=== PATIENT | female | born 1985 | race African-American/Black ===

== ENCOUNTER 2017-03-04 19:33 | Emergency (ER) | payer OTHER ==
[~2017-03-04] VITALS: Ht 165.1 cm; Wt 83.9 kg
--- NOTE | 2017-03-04 20:11 | NUR ---
Urine obtained & sent to lab.
--- NOTE | 2017-03-04 20:48 | NUR ---
union laborer at bedside for blood draw.
[2017-03-04 20:55] LABS: BASOPHILS % (AUTO) 0.6 % (0.0-2.0); EOSINOPHILS # (AUTO) 0.1 /CMM (0.0-0.7); EOSINOPHILS % (AUTO) 1.6 % (0.0-6.0); HEMATOCRIT 41 % (33-45); HEMOGLOBIN 13.6 g/dL (11.5-14.8); LYMPHOCYTES # (AUTO) 1.9 /CMM (0.8-4.8); LYMPHOCYTES % (AUTO) 40.1 % (20.0-44.0); MEAN CORPUSCULAR HEMOGLOBIN 31 PG (26.0-33.0); MEAN CORPUSCULAR HGB CONC 33 g/dl (31.0-36.0); MEAN CORPUSCULAR VOLUME 92 fL (82-100); MONOCYTES # (AUTO) 0.3 /CMM (0.1-1.30); MONOCYTES % (AUTO) 5.9 % (2.0-12.0); NEUTROPHILS # (AUTO) 2.4 /CMM (1.8-8.9); NEUTROPHILS % (AUTO) 51.8 % (43.0-81.0); PLATELET COUNT (AUTO) 247 /CMM (150-450); RDW COEFFICIENT OF VARIATION 12.2 (11.5-15.0); RED BLOOD CELL COUNT(AUTO) 4.44 MIL/uL (4.0-5.2); WHITE BLOOD COUNT (AUTO) 4.7 K/uL (4.3-11.0)
[2017-03-04 20:57] LABS: APPEARANCE,URINE Clear (CLEAR); BILIRUBIN,URINE Negative (NEGATIVE); BLOOD, URINE Negative Ery/uL (NEGATIVE); COLOR,URINE Yellow (YELLOW); KETONES,URINE Negative (NEGATIVE); LEUKOCYTE ESTERASE ,URINE Negative (NEGATIVE); NITRITE, URINE Negative (NEGATIVE); PROTEIN,URINE Negative (NEGATIVE); UGLUCOSE Negative (NEGATIVE); UROBILINOGEN,URINE 0.2 EU/dL (0.2)
[2017-03-04 20:59] LABS: PREGNANCY TEST URINE QUAL NEGATIVE (NEGATIVE)
[2017-03-04 21:02] LABS: CALCIUM, SERUM 8.5 mg/dL (8.5-10.1); CREATININE 1.1 mg/dL (0.6-1.3); POTASSIUM 3.8 mmol/L (3.5-5.1)
--- NOTE | 2017-03-04 21:18 | NUR ---
pt sitting up in bed w/ resp even & unlabored, nad noted.
--- NOTE | 2017-03-04 21:44 | NUR ---
SAMUEL Monsivais at bedside for update on pt status w/ discharge instructions.
[2017-03-04 21:55] VITALS: BP 121/64
--- NOTE | 2017-03-04 21:55 | NUR ---
Patient discharged to home in stable condition. Written and verbal after care instructions given. Patient verbalizes understanding of instruction.
== END 2017-03-04 21:56 | disposition home or self-care (01) ==
LOC: ER 19:33
DX: R53.83 Other fatigue (principal); E03.8 Other specified hypothyroidism
CPT/HCPCS: 36415; 80048; 81001; 84443; 84703; 85025; 99284; A4606; Z7610; 81000-TC

== ENCOUNTER 2019-04-28 08:04 | Emergency (ER) | payer MEDICAID, OTHER ==
[~2019-04-28] VITALS: Ht 167.6 cm; Wt 61.2 kg
--- NOTE | 2019-04-28 08:10 | NUR ---
PT BIB SELF C/O LEFT ELBOW AND SHOULDER PAIN 05/20 PS, S/P LIFTING A BOX YESTERDAY, PT IS AAOX4, NOT IN RESPIRATORY DISTRESS, HOOKED TO MONITOR, KEPT RESTED AND COMFORTABLE, WILL CONTINUE TO MONITOR.
--- NOTE | 2019-04-28 08:13 | NUR ---
AT BEDSIDE FOR EVAL.
[2019-04-28] MEDS ORDERED: IBUPROFEN 600 MG TABLET PO ONE ×2 (08:22→08:30)
--- NOTE | 2019-04-28 08:25 | NUR ---
URINE SPECIMEN COLLECTED AND SENT TO LAB.
--- NOTE | 2019-04-28 08:39 | NUR ---
FITTER TACKER AT BEDSIDE FOR XRAY.
--- NOTE | 2019-04-28 09:18 | NUR ---
PT IS WHEELED TO CT SCAN.
--- NOTE | 2019-04-28 10:29 | NUR ---
CALLED [facility].
--- NOTE | 2019-04-28 11:20 | NUR ---
[facility]TH[facility] RE PAGED. AWAITING CALL BACK
--- NOTE | 2019-04-28 12:01 | NUR ---
PAGED [facility] AWAITING CALL BACK
[2019-04-28] MEDS ORDERED: HYDROCODONE/APAP 5/325MG 1 EACH TABLET ONE (12:08)
--- NOTE | 2019-04-28 12:13 | NUR ---
NORCO [phone] PO GIVEN VERBAL ORDERED BY .
--- NOTE | 2019-04-28 12:28 | NUR ---
PAGED SAMUEL WOLF PAGED
--- NOTE | 2019-04-28 13:14 | NUR ---
TECH AT BEDSIDE FOR SPLINT AND CAST.
[2019-04-28 13:38] VITALS: BP 119/68
--- NOTE | 2019-04-28 13:38 | NUR ---
Patient discharged to home in stable condition. Written and verbal after care instructions given. Patient verbalizes understanding of instruction.
== END 2019-04-28 13:39 | disposition home or self-care (01) ==
LOC: ER 08:04
DX: S42.425A Nondisplaced comminuted supracondylar fracture without intercondylar fracture of left humerus, initial encounter for closed fracture (principal); E05.90 Thyrotoxicosis, unspecified without thyrotoxic crisis or storm; W22.8XXA Striking against or struck by other objects, initial encounter; Y93.89 Activity, other specified; Y92.89 Other specified places as the place of occurrence of the external cause; Y99.8 Other external cause status
CPT/HCPCS: 73080-TC; 73200-TC; 84703-TC